=== PATIENT | female | born 1960 | race Caucasian/White ===

== ENCOUNTER 2023-04-30 18:25 | Emergency (ER) | payer OTHER, SELFPAY ==
[2023-04-30 18:25] VITALS: BP 240/93; PULSE 81; RESP 16; TEMP 35.7; O2SAT 98
--- NOTE | 2023-04-30 19:01 | EDS_ITS ---
HPI History of Present Illness Chief Complaint: Back Informant: patient and spouse/S.O. Narrative Narrative: Patient presents with back pain. Patient states that about a month or 2 ago she was lifting her mother and help caring her up the steps. She hurt her back at that time. Ever since then she has been having discomfort. She has never been syncopal. She is getting pain radiating down the right leg on the lateral aspect. It does not go quite to the knee. No weakness. No bowel or bladder dysfunction. No fevers or chills. She has had a cervical radiculopathy in the past. She has tried adxe-vmo-poqcsux meds but they are not helping. She has no abdominal pain. Of note, she states her blood pressure is always high but not as high as it was here. She is not having headaches numbness or tingling other than the radiation of pain to her right leg. She is not short of breath. No edema. PFSH PFSH Home Medications amlodipine 5 mg tablet 5 mg PO DAILY #30 tabs 04/30/23 [Rx Last Taken Unknown] prednisone 20 mg tablet 60 mg (3 x 20 mg) PO DAILY #15 TABLETS 04/30/23 [Rx Last Taken Unknown] tramadol 50 mg tablet 50 mg PO Q6H 3 days #12 tabs 04/30/23 [Rx Last Taken Unknown] Allergy/AdvReac Type Severity Reaction Status Date / Time codeine Allergy Intermediate Rash Verified 04/30/23 18:28 Penicillins Allergy Intermediate Rash Verified 04/30/23 18:28 Social History Smoking Status: Never smoker ROS ROS ED Constitutional Constitutional ED: Denies chills, fever(s), subjective or sweats Eyes Eyes: Denies blurry vision ENT ENT ED: Denies sore throat Cardiovascular Cardiovascular: Denies chest pain, palpitations or racing heartbeat Respiratory/Chest Respiratory/Chest: Denies dyspnea or dyspnea on exertion Gastrointestinal Gastrointestinal: Denies abdominal pain, nausea or vomiting Genitourinary Genitourinary ED: Denies dysuria, hematuria or urinary frequency Musculoskeletal Musculoskeletal: Reports back pain; Denies arthralgias, myalgias or neck pain Integumentary Denies rash Neurologic Neurologic: Denies headache(s), paresthesias or weakness Hematologic/Lymphatic Hematologic/Lymphatic: Denies easy bleeding or easy bruising Allergic/Immunologic Allergic/Immunologic ED: Denies urticaria EXAM Physical Exam Narrative Exam Narrative: General: Patient is awake alert. She is standing on the edge of bed. HEENT: No trauma. Mucous membranes moist. Eyes show no injection or proptosis. Range of motion is normal. Neck is supple. No JVD. Lungs are completely clear bilaterally. No pain with a deep breath. Saturations are normal at 98% on room air. Heart is regular. Peripheral pulses including and lower extremities are normal and equal. Abdomen is obese but overall benign. She has no complaints of pain and no tenderness. Bowel sounds are normal. There is no bruit. Back shows some mid to left paraspinal tenderness in the mid lumbar region. No skin changes. No sciatic notch/buttock tenderness. Even though patient has her pain and tenderness on the left the radiation is on the right side. Patient can sit stand. Her reflexes including patellar and Achilles are equal. Patellar 2+ bilaterally and Achilles are 1. There are no sensory changes. Const Vital Signs: 04/30/23 18:25 04/30/23 19:10 04/30/23 20:46 Temperature 96.2 F L Temperature Source Temporal Pulse Rate 81 72 Respiratory Rate 16 16 Blood Pressure 240/93 H 230/112 H 231/109 H Blood Pressure Mean 142 151 149 Pulse Ox 98 95 Oxygen Delivery Method Room Air Room Air MDM MDM MDM Narrative Medical decision making narrative: Patient knows that her blood pressure is normally up but not this high. This may be 1 blood pressure check. She states also she had just walk-in and she was in a lot of pain. We will get her meds for pain and this will be rechecked. If it is still significantly elevated to this range we may do further workup at this time. Patient was given morphine for pain. This did help her pain quite a bit. But her blood pressure was still up. I do not think this represents dissection. She has had this pain for most 2 months. Its gotten slowly worse. It is extremely motion related. It radiates down the right leg slightly. But it radiates down the lateral aspect. Her pulses are excellent. But I am still concerned about this markedly elevated blood pressure. She has a history of it being elevated but I do not have prior records to see how high. Since she had persistent elevation of did do some basic blood work. CBC showed no acute process. Electrolytes showed mild elevation of creatinine to 1.12 but there is no prior to compare to. She did have a slightly elevated calcium at 11.4. This will need to be checked as an outpatient again. Her EKG did not show any marked abnormalities. With 1 dose of labetalol her blood pressure is down from 240-201. I do not think we need to make it going lower. This is already approaching a 20% reduction. She is asymptomatic. But I think this is high enough that we do need to get her on meds for blood pressure. She reports always having blood pressure when it is checked. I still think she has back pain with radiculopathy. We will get her on a course of steroids for this. She has allergies to codeine. The chart states rash but she states rash and trouble swallowing. But she has taken Ultram in the past without complications. She was given morphine here because she had had morphine in the past without problems. She has already contacted Dr. Perkins's office for follow-up. Lab Data Attestation: I reviewed the patient's lab results. Labs: Laboratory Results - last 24 hr 04/30/23 20:50 WBC 10.3 RBC 5.26 Hgb 15.0 Hct 47.0 MCV 89.4 MCH 28.5 MCHC 31.9 L RDW Std Deviation 41.7 RDW Coeff of Ellyn 12.7 Plt Count 265 MPV 11.4 Immature Gran % (Auto) 0.600 Neut % (Auto) 68.4 Lymph % (Auto) 22.5 [place] % (Auto) 6.8 Eos % (Auto) 1.2 Baso % (Auto) 0.5 Absolute Neuts (auto) 7.0 Absolute Lymphs (auto) 2.32 Nucleated RBC % 0 Sodium 137 Potassium 3.6 Chloride 102 Carbon Dioxide 30.0 Anion Gap 5 BUN 22 H Creatinine 1.12 H Estim Creat Clear Calc 45.55 Est GFR (MDRD) Af Amer 64 Est GFR (MDRD) Non-Af 53 L BUN/Creatinine Ratio 19.6 Glucose 107 H Calcium 11.4 H EKG Initial EKG: Comments: My independent interpretation of the patient's EKG shows a normal sinus rhythm with overall rate of 71. No ventricular ectopy. Mild baseline irregularities but no sign of acute ST elevation or depression. [place] interval, QRS duration and QTc are all normal. Discharge Plan Triage Chief Complaint: Back ED Provider: Santy Olmos Dx/Rx/DC Orders Clinical Impression: Lumbar radiculopathy, Lower back pain, Hypertension Instructions: ED Back Pain (Acute or Chronic), ED Hypertension New Begin Treatment, ED Sciatica Prescriptions: New amlodipine 5 mg tablet 5 mg PO DAILY Qty: 30 0RF prednisone 20 mg tablet 60 mg PO DAILY Qty: 15 0RF tramadol 50 mg tablet 50 mg PO Q6H 3 Days Qty: 12 0RF Primary Care Provider: Care Physician,No Primary Referrals: NOT,DEFINED [Non-Staff] - Disposition Disposition: Home, Self Care
[2023-04-30] MEDS: morphine 10 MG/ML Syringe IM (19:06)
[2023-04-30 19:09] VITALS: BMI 39.8
[2023-04-30 19:10] VITALS: BP 230/112
--- NOTE | 2023-04-30 20:15 | EKG12_ITS ---
Test Reason : DYSRHYTHMIA Blood Pressure : / mmHG Vent. Rate : 071 BPM Atrial Rate : 071 BPM P-R Int : 156 ms QRS Dur : 098 ms QT Int : 402 ms P-R-T Axes : 046 025 064 degrees QTc Int : 436 ms Normal sinus rhythm Normal ECG Confirmed by CLAUDIA HERNANDEZ, SREE ([id number]), editorial specialist ANNETTE SOTO ([id number]) on 05/02/2023 8:36:56 AM Referred By: Confirmed By:SREE TAYLOR MD
[2023-04-30] MEDS: Labetalol (Prefilled) 20 MG/4 ML IV (20:42)
[2023-04-30 20:46] VITALS: BP 231/109; PULSE 72; RESP 16; O2SAT 95
[2023-04-30 21:05] LABS: Absolute Lymphocyte Count 2.32 X10^3/uL (0.83-4.51); Basophil# 0.05 X10^3/uL; Basophil% 0.5 % (0-1); Eosinophil# 0.12 X10^3/uL; Eosinophils% 1.2 % (0-5); Lymphocyte # 2.32 X10^3/ul (0.83-4.51); Lymphocyte % 22.5 % (19-41); Mean Corp Hgb Conc 31.9 g/dL (32-36); Mean Corpuscular Hgb 28.5 pg (27.0-32.0); Mean Corpuscular Volume 89.4 fL (81-99); Mean Platelet Vol. 11.4 fl (6.2-12.0); Monocyte% 6.8 % (0-10); NRBC Flagged by Analyzer 0 % (0-5); Neutrophil # 7.04 X10^3/uL (2.7-7.7); Neutrophil % 68.4 % (47-70); Platelet Count 265 K/mm3 (150-450); RBC Distribution Width CV 12.7 % (11.6-14.6); RBC Distribution Width SD 41.7 fl (35.1-43.9); Red Blood Count 5.26 M/mm3 (4.2-5.4); White Blood Count 10.3 K/mm3 (4.4-11.0)
[2023-04-30 21:13] LABS: Anion Gap 5 (5-15); BUN 22 mg/dL (7-18); BUN/Creat Ratio 19.6 RATIO (10-20); Calcium,Total 11.4 mg/dL (8.5-10.1); Chloride 102 mmol/L (98-107); Creatinine, Serum 1.12 mg/dL (0.55-1.02); EST Glomerular Filtration Rate 53 mL/min (>60); Est Glom Filt Rate - Afr Amer 64 mL/min (>60); Estimated Creatinine Clearance 45.55 ml/min; Glucose 107 mg/dL (74-106); Potassium 3.6 mmol/L (3.5-5.1); Sodium Level 137 mmol/L (136-145)
[2023-04-30 21:16] VITALS: BP 201/94; PULSE 68; RESP 16; O2SAT 98
[2023-04-30] MEDS: Labetalol (Prefilled) 20 MG/4 ML 10 MG IV (21:36)
[2023-04-30] MEDS: Morphine 4 MG/ML Syringe IV (21:36)
[2023-04-30 21:44] VITALS: BP 194/107; PULSE 67; RESP 16; TEMP 36.6; O2SAT 94
[2023-04-30 21:47] VITALS: BP 181/90
== END 2023-04-30 22:15 | disposition home or self-care (01) ==
PROVIDERS: Emergency Provider Emergency Medicine; Visit Provider Emergency Medicine
DX: M54.16 Radiculopathy, lumbar region (principal); I10 Essential (primary) hypertension
CPT/HCPCS: 80048; 85025; 93005; 96372; 96374; 96375; 96376; 99283; A4216

== ENCOUNTER 2023-05-17 09:40 | Emergency (ER) | payer OTHER, SELFPAY ==
[2023-05-17 09:40] VITALS: BP 155/131; PULSE 139; RESP 16; TEMP 36.4; O2SAT 98
--- NOTE | 2023-05-17 10:26 | EX.ED.DYSGE1 ---
HPI History of Present Illness Chief Complaint: Back Onset/Context/Timing Maximum Severity: Mild Narrative Narrative: Patient is a 63-year-old female who was sent to the ER today by back surgeon Dr Trevin Perkins, Patient was in the office today for follow-up on the MRI reports that were ordered. Patient saw Dr. Perkins on May 03. Patient has been having slowly progressing pain since the end of January, slowly having difficulty with ambulation and function of activity of daily living at home in the past 2 to 3 weeks. Patient has almost been bedridden since the beginning of May secondary to the pain. Patient saw Dr. Perkins in the office on May 03, he ordered MRI of the lumbar spine without contrast. Patient was placed on gabapentin and tramadol at that time for pain. Patient does take pain medication for Blood pressure. Patient has no loss of urine or bowels in her pants. Patient has no abdominal pain, nausea or vomiting. Patient has no headache. Patient has no chest pain or shortness of breath. No dysuria, frequency or urgency. No loose stool, no constipation. at bedside. Patient does not been to work in the last several weeks because she has been bed ridden. Patient is able to use a cane and barely get to the bathroom for urination and bowel movements otherwise has been laying in bed secondary to pain. Patient was sent over to the office from Dr. Perkins for admission secondary to intractable pain, unable to perform ADLs at home, and further oncologic evaluation and consultation to help treat and initiate progression of disease. MRI of the lumbar spine showed numerous bone lesions throughout the lumbar and sacral spine, highly suspicious for metastatic disease. Recommending further imaging of thoracic spine as well. Copies report have been scanned into the system as well, patient has a copy of the report and the CD as well. [facility] Medical History (Updated 05/17/23 @ 13:[address] Berhane Burden, DO) HTN (hypertension) Home Medications amlodipine 5 mg tablet 5 mg PO DAILY HIGH BLOOD PRESSURE #30 tabs 04/30/23 [Rx Last Taken 05/16/23] tramadol 50 mg tablet 50 mg PO Q6H PAIN 3 days #12 tabs 04/30/23 [Rx Last Taken 05/17/23] gabapentin 100 mg capsule 100 mg PO TID NERVE PAIN 05/17/23 [History Last Taken 05/17/23] ibuprofen 200 mg tablet (Advil) 400 mg PO Q4H PRN pain 05/17/23 [History Last Taken 05/17/23] Allergy/AdvReac Type Severity Reaction Status Date / Time codeine Allergy Intermediate Rash Verified 04/30/23 18:28 Penicillins Allergy Intermediate Rash Verified 04/30/23 18:28 Surgical History (Updated 05/17/23 @ 10:45 by Merle Hendricks RN) Hx of section Hx of removal of ovary Social History Smoking Status: Never smoker ROS ROS ED ROS Narrative REVIEW OF SYSTEMS: Unless otherwise stated in this report the patient's positive and negative responses for review of systems for constitutional, eyes, ENT, cardiovascular, respiratory, gastrointestinal, neurological, , musculoskeletal, and integument systems and related systems to the presenting problem are either stated in the history of present illness or were not pertinent or were negative for the symptoms and/or complaints related to the presenting medical problem. EXAM Physical Exam Narrative Exam Narrative: Vital signs reviewed and patient is not hypoxic. General: The patient appears moderate pain, laying in left lateral decumbent position, taking the pressure off her lower spine. . Patient is resting uncomfortably on cart. Not toxic, lethargic, or listless. Skin: Warm, dry, no pallor noted. There is no rash noted. Head: Normocephalic, atraumatic Eye: Normal conjunctiva, no drainage, EOMI. PERRL. Ears, Nose, Mouth, and Throat: oral mucosa is moist. Nares patent. Mouth without vesicles. Cardiovascular: Regular Rate and Rhythm, no murmurs, gallops, or rubs Respiratory: Patient is in no distress, no accessory muscle use, lungs are clear to auscultation, no wheezing, rales or rhonchi Back: Moderate to severe midline lower thoracic and lumbar tenderness to palpation, moderate paraspinal lower thoracic and lumbar tenderness to palpation, no rash noted. No signs of saddle anesthesia or cauda equina. Patient has no acute motor or sensory deficits to her lower extremities, patient's lower back pain is what is limiting her ambulation. non-tender, no CVA tenderness bilaterally to percussion. NO CTLS midline or paraspinal tenderness to palpation. GI: Soft, no tenderness to palpation, no masses appreciated. No rebound, guarding, or rigidity noted. Musculoskeletal: The patient has full range of motion of all extremities and joints with no difficulty. Patient has no motor, no sensory deficits. Neurological: A&O x4, normal speech, no focal neurological deficits. Psychiatric: Cooperative Const Vital Signs: 05/17/23 09:40 05/17/23 12:59 Temperature 97.6 F L Temperature Source Temporal Pulse Rate 139 H 80 Respiratory Rate 16 16 Blood Pressure 155/131 H 196/90 H Blood Pressure Mean 139 125 Pulse Ox 98 94 Oxygen Delivery Method Room Air MDM MDM MDM Narrative Medical decision making narrative: Dr Schmidt Has been extremely helpful in the ER today helping with transfer of this patient. We have called to [facility], [facility], and [facility], they are all on several day wait list for transfer and unable to accept this patient at this time. Thankfully were able to speak to [facility] in [place]. They are accepting of this patient. We have talked to Dr. Uribe, accepting physician. Dr. Schmidt spoke to transfer line initially at 11:15 AM. We received a phone call at approximately 12:30 PM that patient does have a bed number and is accepted. It was arranged by Dr. Schmidt that patient could drive by private car to help save time get patient to the hospital sooner. This is requested by patient and by private car. Patient will be given 1 Percocet prior to arrival. The transfer hospital have requested CT of the abdomen and pelvis by IV contrast, also checking urine, also checking chest x-ray as well. These were ordered by Dr. Schmidt. Results pending at transfer. Results will be followed up by Dr. Schmidt or myself as well. Patient will be transferred by private car. Patient has been very thankful for help. Dr. Schmidt has been extremely helpful phone calls and assistance in transfer as well. Critical care time 35 minutes exclusive from separate billable procedures that were performed. The following was considered in the determination of critical care but not limited to the level of medical decision making, intensive cardiac and/or respiratory monitoring, frequent vital sign monitoring, evaluation of laboratory studies, evaluation of radiographic studies, oxygen monitoring, and constant monitoring and speaking to family at bedside Lab Data Labs: Laboratory Results - last 24 hr 05/17/23 10:35 WBC 12.2 H RBC 5.32 Hgb 15.2 H Hct 46.2 MCV 86.8 MCH 28.6 MCHC 32.9 RDW Std Deviation 39.7 RDW Coeff of Ellyn 12.5 Plt Count 197 MPV 11.2 Immature Gran % (Auto) 0.600 Neut % (Auto) 83.5 H Lymph % (Auto) 10.3 L [place] % (Auto) 4.6 Eos % (Auto) 0.6 Baso % (Auto) 0.4 Absolute Neuts (auto) 10.2 H Absolute Lymphs (auto) 1.26 Nucleated RBC % 0 Sodium 136 Potassium 3.8 Chloride 99 Carbon Dioxide 30.0 Anion Gap 7 BUN 19 H Creatinine 1.05 H Est GFR (MDRD) Af Amer 69 Est GFR (MDRD) Non-Af 57 L BUN/Creatinine Ratio 18.1 Glucose 121 H Calcium 11.1 H Total Bilirubin 0.50 AST 29 ALT 21 Alkaline Phosphatase 109 Total Protein 7.7 Albumin 4.2 Globulin 3.5 Albumin/Globulin Ratio 1.2 Radiography Diagnostic Testing: Clinical Impression(s) from Imaging Studies Abdomen/Pelvis CT 05/17/23 11:44 IMPRESSION: 1. 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 No demonstrated primary or metastatic disease to the solid organs or the bowel. Moderately enlarged heterogeneous fibroid uterus, consider uterine malignancy in the lower source of primary neoplasm is found. The appearance of the bony structures suggest multiple myeloma as the primary malignancy rather than metastatic disease from a solid organ. 2. Extension of tumor through the cortex of the left side of the pedicle at T11 and T12 results in epidural extension and moderate central canal stenosis with cord compression. 3. No pathologic lymphadenopathy is present in the abdomen or pelvis. No omental or peritoneal masses are seen. No adnexal masses or cysts are present. Electronically Signed: Wan Hill MD at 13:01 EST , Chest X-Ray 05/17/23 12:11 IMPRESSION: Degenerative changes, as described above. No demonstrated acute cardiopulmonary process. Electronically Signed: Wan Hill MD at 13:01 EST , Discharge Plan Triage Chief Complaint: Back ED Provider: Berhane Burden Dx/Rx/DC Orders Clinical Impression: Intractable low back pain, Metastatic disease Prescriptions: No Action amlodipine 5 mg tablet 5 mg PO DAILY Qty: 30 0RF Patient Comments: PT STATES SHE TAKES IN THE EVENING AT ABOUT 5PM tramadol 50 mg tablet 50 mg PO Q6H 3 Days Qty: 12 0RF gabapentin 100 mg capsule 100 mg PO TID ibuprofen [Advil] 200 mg tablet 400 mg PO Q4H PRN (Reason: pain) Primary Care Provider: Care Physician,No Primary Referrals: Care Physician,No Primary [Primary Care Provider] - Activity Restrictions/Additional Instructions: Dr Uribe [facility] Disposition Disposition: Acute Care Hospital Discharge Location: [facility] Legal Material Mixer Reflex Medical hold order details:: IF a medical hold is selected below, a suggested order for a MEDICAL HOLD will reflex upon signing the document. Next of kin: [place] law dictates a PRIORITY LIST for identifying legal decision-maker/legal next of kin in the following order (LNOK): 1st: The patient?s legal guardian, if any 2nd: The patient's spouse (if status is questionable, consult Risk Management) 3rd: The patient?s adult child(domo) (majority, if multiple children) 4th: The patient?s parents 5th: The patient?s adult siblings (majority, if multiple children siblings)
[2023-05-17] MEDS: HYDROmorphone 1 MG/ML Syringe IV (10:40)
[2023-05-17] MEDS: 0.9% Normal Saline (500mL Bag) 500 ML 999 ML IV (10:40)
[2023-05-17] MEDS: Ondansetron 4 MG/2 ML Vial IV (10:40)
[2023-05-17 10:42] LABS: Absolute Lymphocyte Count 1.26 X10^3/uL (0.83-4.51); Absolute Neutrophil Count 10.2 X10^3/uL (2.0-7.7); Basophil# 0.05 X10^3/uL; Basophil% 0.4 % (0-1); Eosinophil# 0.07 X10^3/uL; Eosinophils% 0.6 % (0-5); Hematocrit 46.2 % (37-47); Hemoglobin 15.2 g/dL (12.0-15.0); Lymphocyte # 1.26 X10^3/ul (0.83-4.51); Lymphocyte % 10.3 % (19-41); Mean Corp Hgb Conc 32.9 g/dL (32-36); Mean Corpuscular Hgb 28.6 pg (27.0-32.0); Mean Corpuscular Volume 86.8 fL (81-99); Mean Platelet Vol. 11.2 fl (6.2-12.0); Monocyte# 0.56 X10^3/uL; Monocyte% 4.6 % (0-10); NRBC Flagged by Analyzer 0 % (0-5); Neutrophil # 10.23 X10^3/uL (2.7-7.7); Neutrophil % 83.5 % (47-70); Platelet Count 197 K/mm3 (150-450); RBC Distribution Width CV 12.5 % (11.6-14.6); RBC Distribution Width SD 39.7 fl (35.1-43.9); Red Blood Count 5.32 M/mm3 (4.2-5.4); White Blood Count 12.2 K/mm3 (4.4-11.0)
[2023-05-17 10:59] LABS: ALB/GLOB Ratio 1.2 RATIO (0.9-2.4); AST(SGOT) 29 U/L (15-37); Alanine Aminotransfer ALT/SGPT 21 U/L (13-56); Albumin, Serum 4.2 g/dL (3.2-5.0); Alkaline Phosphatase 109 U/L (45-117); Anion Gap 7 (5-15); BUN 19 mg/dL (7-18); BUN/Creat Ratio 18.1 RATIO (10-20); Calcium,Total 11.1 mg/dL (8.5-10.1); Chloride 99 mmol/L (98-107); Creatinine, Serum 1.05 mg/dL (0.55-1.02); EST Glomerular Filtration Rate 57 mL/min (>60); Est Glom Filt Rate - Afr Amer 69 mL/min (>60); Globulin 3.5 g/dL (2.2-4.2); Glucose 121 mg/dL (74-106); Potassium 3.8 mmol/L (3.5-5.1); Protein, Total 7.7 g/dL (6.4-8.2); Sodium Level 136 mmol/L (136-145)
--- NOTE | 2023-05-17 11:44 | CT_ITS ---
STUDY: CT ABDOMEN AND PELVIS WITH CONTRAST REASON FOR EXAM: Female, 63 years old.metastatic cancer MRI showed back lesions, hypertension. RADIATION DOSAGE (If Supplied By Facility): CTDIvol = ( 15.02 ) mGy, DLP = ( 1227.69 ) mGycm TECHNIQUE: Transaxial images were obtained from the dome of the diaphragm to the symphysis pubis without oral contrast. ml of 100mL Isovue-370 contrast was administered. Sagittal and coronal images were reconstructed. Individualized dose optimization techniques were used for this CT. 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 No demonstrated primary or metastatic disease to the solid organs or the bowel. Moderately enlarged heterogeneous fibroid uterus, consider uterine malignancy in the lower source of primary neoplasm is found. The appearance of the bony structures suggest multiple myeloma as the primary malignancy rather than metastatic disease from a solid organ. Some osteolytic lesions also present in the bilateral ribs. Extension of tumor through the cortex of the left side of the pedicle at T11 and T12 results in epidural extension and moderate central canal stenosis with cord compression. Osteolytic lesions are also present in the bilateral iliac wings as well as the pubic rami and in the central aspect of the left femoral head. No pathologic lymphadenopathy is present in the abdomen or pelvis. No omental or peritoneal masses are seen. No adnexal masses or cysts are present. There are chronic interstitial fibrotic changes of the lung bases. The visualized portions of the heart are within normal limits. Normal liver. Normal gallbladder and extrahepatic biliary system. Normal spleen. Normal pancreas. Normal bilateral adrenal glands. Normal right kidney. Normal left kidney. Normal visualized stomach. Normal small intestine. Normal colon. The appendix is visualized and appears normal. Normal abdominal aorta. Normal inferior vena cava. Normal retroperitoneum. Normal urinary bladder. Normal abdominal wall. There are diffuse degenerative changes of the visualized lumbar spine. CT/Abdomen/Pelvis W IV Cont ONLY IMPRESSION: 1. 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 No demonstrated primary or metastatic disease to the solid organs or the bowel. Moderately enlarged heterogeneous fibroid uterus, consider uterine malignancy in the lower source of primary neoplasm is found. The appearance of the bony structures suggest multiple myeloma as the primary malignancy rather than metastatic disease from a solid organ. 2. Extension of tumor through the cortex of the left side of the pedicle at T11 and T12 results in epidural extension and moderate central canal stenosis with cord compression. 3. No pathologic lymphadenopathy is present in the abdomen or pelvis. No omental or peritoneal masses are seen. No adnexal masses or cysts are present. Electronically Signed: Wan Hill MD at 13:01 EST ,
--- NOTE | 2023-05-17 12:11 | RAD_ITS ---
STUDY: X-RAY CHEST REASON FOR EXAM: Female, 63 years old. back pain, metastatic cancer TECHNIQUE: Single AP portable view of the chest. COMPARISON: None. FINDINGS: The lungs are clear and expanded. There is no demonstrated pleural abnormality. Normal size heart. Normal mediastinum and maty. Normal visualized pulmonary arteries. There is atherosclerotic tortuosity of the aortic arch and descending thoracic aorta. There are diffuse degenerative changes of the visualized thoracic spine. Normal visualized ribs, clavicles, and shoulders. There is no demonstrated abnormality of the visualized soft tissue structures of the upper abdomen. RAD/Chest 1 View IMPRESSION: Degenerative changes, as described above. No demonstrated acute cardiopulmonary process. Electronically Signed: Wan Hill MD at 13:01 [facility] ,
[2023-05-17] MEDS: Oxycodone/Apap 5/325 Tablet PO (12:57)
--- NOTE | 2023-05-17 12:58 | ED.RN ---
PER DR NORIS SOSA FOR PATIENT TO TRANSFER TO [facility] BY PRIVATE VEHICLE- FORM SIGNED AT THIS TIME.
[2023-05-17 12:59] VITALS: BP 196/90; PULSE 80; RESP 16; O2SAT 94
[2023-05-17 13:09] LABS: Bacteria 0 SEEN /hpf (None Seen); Mucous, Urine 0 SEEN /hpf (<or=2+); Red Blood Cells-Urine 0 SEEN /hpf (0-5); Squamous Epithelial Cells - UA 0 SEEN /hpf (5-10)
--- NOTE | 2023-05-17 13:33 | ED.RN ---
RN REPORT GIVEN TO RICHARD NICHOLE AT [facility]. NO FURTHER QUESTIONS OR CONCERNS
[2023-05-17 13:36] LABS: Color, Urine Yellow (Yellow); Glucose, Dipstick Normal (Normal); Ketone-Dipstick 5 mg/dl (Negative); Leukocyte Esterase-Dipstick 25 /ul (Negative); Nitrite-Dipstick Negative (Negative); Occult Blood-Urine Negative /ul (Negative); Protein-Dipstick 30 mg/dl (Negative); Specific Gravity, Urine 1.015 (1.002-1.030); Urine Bilirubin Dipstick Negative (Negative); Urine Clarity Clear (Clear); Urine Urobilinogen Normal (Normal)
[2023-05-17 13:51] LABS: White Blood Cells 0-5 SEEN /hpf (0-5)
== END 2023-05-17 13:34 | disposition short-term general hospital (02) ==
PROVIDERS: Internal Medicine; Emergency Provider Emergency Medicine; Visit Provider Emergency Medicine
DX: M54.50 Low back pain, unspecified (principal); I10 Essential (primary) hypertension; Z79.899 Other long term (current) drug therapy; Z74.01 Bed confinement status
CPT/HCPCS: 71045; 74177; 80053; 81001; 85025; 96374; 96375; 99284; J7030; Q9967; A4216; J2405